=== PATIENT | female | born 1985 | race Caucasian/White ===

== ENCOUNTER 2022-02-09 08:41 | Emergency (ER) | payer BC, SELFPAY ==
[2022-02-09 08:52] VITALS: BP 161/87; PULSE 72; RESP 18; TEMP 36.9; O2SAT 99; BMI 30.7
--- NOTE | 2022-02-09 09:08 | ED_ITS ---
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 She has been sick in bed for a couple of days, her son was sick with the similar illness prior week. She has no shortness of breath, no chest pain, no skin rashes, no nuchal rigidity. She has generally been healthy, she has had a tubal ligation. Related Data Previous Rx's Medication Instructions Recorded ketorolac 10 mg tablet 10 mg PO TID PRN pain 3 days #10 02/09/22 tabs Allergies Allergy/AdvReac Type Severity Reaction Status Date / Time No Known Drug Allergies Allergy Verified 02/09/22 08:52 Review of Systems Status of ROS: Reports: 6 or more systems reviewed and unremarkable except as noted in History and below [facility] Social History Smoking Status: Never smoker Do you use any of these nicotine containing products: None Second hand tobacco smoke exposure: Yes How often do you have a drink containing alcohol: 2-3 times a week How many standard drinks containing alcohol do you have on a typical day: 1 or 2 How often do you have six or more drinks on one occasion: Never AUDIT-C Alcohol total score: 3 Non-prescribed substance use: marijuana (any form) service: No Exam Narrative: Exam Narrative: Objective: In general patient is in mild distress and illness alert or x3, noncyanotic Vital signs unremarkable and slightly hypertensive HEENT is unremarkable dry mucous membranes in the mouth neck is supple chest is clear no rales or wheezing heart rhythm regular no murmur abdomen benign soft extremities are no edema neurologic nonfocal good peripheral perfusion Skin is warm and dry Const: Vital Signs, click to edit/add: Vital Signs - 24 hr 02/09/22 08:52 02/09/22 10:30 02/09/22 09:30 Temperature 98.5 F Pulse Rate [Pulse Oximeter] 72 64 77 Respiratory Rate 18 Blood Pressure [Le ft Forearm] 161/87 H 132/88 133/81 Pulse Oximetry 99 97 99 Oxygen Delivery Me thod Room Air Room Air Course Vital Signs Vital signs: Initial Vital Signs Temperature 98.5 F 02/09/22 08:52 Temperature Source Temporal Artery Scan 02/09/22 08:52 Pulse Rate 72 02/09/22 08:52 Respiratory Rate 18 02/09/22 08:52 Blood Pressure 161/87 H 02/09/22 08:52 Blood Pressure Mean 111 02/09/22 08:52 Blood Pressure Position Supine 02/09/22 08:52 Pulse Oximetry 99 02/09/22 08:52 Oxygen Delivery Method 02/09/22 08:52 Vital Signs Temperature 98.5 F 02/09/22 08:52 Pulse Rate 72 02/09/22 08:52 Respiratory Rate 18 02/09/22 08:52 Blood Pressure 161/87 H 02/09/22 08:52 Pulse Oximetry 99 02/09/22 08:52 Oxygen Delivery Method 02/09/22 08:52 Temperature 98.5 F 02/09/22 08:52 Pulse Rate 64 02/09/22 10:30 Respiratory Rate 18 02/09/22 08:52 Blood Pressure 132/88 02/09/22 10:30 Pulse Oximetry 97 02/09/22 10:30 Oxygen Delivery Method 02/09/22 10:30 Medical Decision Making MDM Narrative Medical decision making narrative: Patient has all the signs and stigmata of an influenza type illness, will check influenza/COVID/RSV. Will treat the patient with IV fluids, IV Toradol, check some laboratory studies and rehydrate. Disposition pending findings would likely send her home with Toradol for discomfort. She can take Tylenol as well. Update her regular doctor in a couple of days, return to ED sooner worsening or changes. Addendum: Patient feels little better if with fluids and Toradol, will send her home with Toradol, she has influenza a Lab Data Labs: Lab Results 02/09/22 02/09/22 02/09/22 Range/Units 09:07 09:20 09:20 WBC 5.17 (4.50-11.00) K/uL RBC 4.56 (4.00-5.20) m/uL Hgb 14.6 (12.0-16.0) gm/dL Hct 42.9 (33.0-51.0) % MCV 94 (80-100) fL MCH 32 (26-34) pg MCHC 34 (32-36) gm/dL RDW Coeff of Rigo 12.2 (11.5-15.5) % Plt Count 207 (140-440) K/uL Neut % (Auto) 75.0 H (42.0-72.0) % Lymph % (Auto) 11.6 L (20-44) % [place] % (Auto) 13.0 H (0.0-11.0) % Eos % (Auto) 0.0 (0.0-7.0) % Baso % (Auto) 0.2 (0.0-3.0) % Neut # (Auto) 3.90 (1.7-7.0) K/uL Lymph # (Auto) 0.60 L (0.90-2.90) K/uL [place] # (Auto) 0.70 (0.00-0.90) K/UL Eos # (Auto) 0.00 (0.00-0.50) K/uL Baso # (Auto) 0.01 (0.00-0.30) K/uL Abs Immat Gran (auto) 0.01 (0.00-0.30) K/uL Imm/Tot Granulo (auto) 0.2 % Sodium 140 (135-149) mmol/L Potassium 3.5 L (3.6-5.1) mmol/L Chloride 107 (96-114) mmol/L Carbon Dioxide 24 (20-32) mmol/L BUN 12 (5-24) mg/dL Creatinine 0.7 (0.5-1.5) mg/dL Estimated Creat Clear 119.77 Estimated GFR 114 ml/min Glucose 79 (60-115) mg/dL Calcium 8.4 (8.4-10.6) mg/dL SARS-CoV-2 (PCR) Negative SARS-CoV-2 (Negative) Influenza Type A (PCR) POSITIVE PCR FLU A A (Negative) Influenza Type B (PCR) Negative PCR FLU B (Negative) RSV (PCR) Negative PCR RSV (Negative) Discharge Plan Discharge Clinical Impression: Acute viral syndrome, Influenza Patient Disposition: Home w/ Parent or Adult Condition: Improved Additional Instructions: Rest, fluids, Toradol as needed, update regular doctor in couple of days, return to ED sooner problems concerns worsening. Activity Level: Light activity Discharge Diet: Regular Diet Detail: Diet as tolerated Prescriptions: New ketorolac 10 mg tablet 10 mg PO TID PRN (Reason: pain) 3 Days Qty: 10 0RF Stand Alone Forms: Exacterth Info Instructions
--- OUTSIDE RECORDS SUMMARY | 2022-02-09 09:15 | XMS_ITS | Clinical Summary ---
:1985 Author Organization [facility] [place] [address] Care Team Providers Name Role Phone Alyce Grady Primary Care Provider Allergies No known active allergies Medications Medication Sig Dispensed Refills Start Date End Date Status busPIRone (BUSPAR) 10 Take 2 Tablets 120 Tablet 5 10/01/2020 Active mg tabletIndications: (20 mg) by mouth Anxiety state 2 times daily. ferrous sulfate, 65 mg TAKE ONE TAB BY 30 Tablet 11 06/03/2021 Active elemental, MOUTH ONCE DAILY tabletIndications: Low ON AN EMPTY ferritin level STOMACH OR WITH SOMETHING ACIDIC. valACYclovir (VALTREX) TAKE ONE TABLET 5 Tablet 4 06/03/2021 Active 1 gram BY MOUTH ONCE tabletIndications: DAILY FOR 5 DAYS Herpes simplex FOR HERPES vulvovaginitis OUTBREAK SUMAtriptan (IMITREX) Take 1 Tablet (50 9 Tablet 3 07/30/2021 Active 50 mg mg) by mouth tabletIndications: every 2 hours if Migraine with aura and needed for without status Migraine. Max migrainosus, not dose: 200mg per intractable 24 hrs. venlafaxine (EFFEXOR TAKE ONE CAPSULE 90 Capsule 1 12/25/2021 Active XR) 75 mg cp24 BY MOUTH ONCE Extended-Release DAILY WITH A capsuleIndications: MEAL. TAKE WITH Major depressive THE 150MG CAP FOR disorder, recurrent TOTAL DAILY DOSE episode, moderate OF 225MG. (HC), Anxiety state venlafaxine (EFFEXOR TAKE ONE CAPSULE 90 Capsule 1 12/25/2021 Active XR) 150 mg BY MOUTH ONCE Extended-Release DAILY WITH capsuleIndications: EVENING MEAL. Major depressive TAKE WITH THE disorder, recurrent 75MG CAP FOR episode, moderate TOTAL DAILY DOSE (HC), Anxiety state 0F 225MG. Active Problems Problem Noted Date Chronic GERD 12/07/2016 Overview: EGD 03/2017 retained food in the stomach Herpes simplex vulvovaginitis 07/12/2016 Cannabis abuse, episodic use 09/14/2015 Anxiety state, unspecified 2011 Low grade squamous intraepithelial lesion (LGSIL) at r isk for high grade 02/20/2010 squamous intraepithelial lesion (HGSIL) on cytologic s mear of cervix Overview: 09/2005 ASCUS 05/2006 UNS 11/2007 NIL 07/2008 LSIL 08/2008 [place] CELINA I 05/2009 LSIL cannot exclude HSIL 02/2010 LSIL cannot exclude HSIL 11/2010 [place] CELINA I 07/2011 NIL 10/2012 NIL 12/2013 ASCUS/HPV+ 04/2014 [place] Suggestive of CELINA I 07/2015 NIL/HPV negative 09/2016 NIL/HPV negative 01/2020 ASCUS/HPV+ 06/2020 [place]: Biopsy CELINA 1 07/2021 LSIL/HPV+, HPV 16/18 negative. 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 02/20/2010 Dysthymic disorder 01/24/2008 01/26/2008 Routine follow-up 05/19/2006 05/19/2006 Depressive disorder, not elsewhere classified 05/19/2006 01/26/2008 Exercise induced bronchospasm 04/13/2006 07/25/2012 Encounters Date Type Specialty Care Team Description 12/23/2021 Refill Alyce Grady PA Refi ll Request (Venlafaxine, Venlafaxine) from Last 3 Months Immunizations Name Administration Dates Next Due AMB INFLUENZA, IIV4 (AGE=>6MOS) MDV 12/12/2017 (Flu Clinic Only) AMB Influenza, IIV3 (Age >=3 11/22/2011 years)(Flu Clinic Only) AMB Influenza, IIV4 PF (=>6 mos 12/05/2016, 12/16/2013 Flulaval,Fluzone Fluarix)(Flu Clinic Only) COVID-19 vaccine (Moderna 05/04/2020, 04/06/2020 100mcg/0.5mL) PF, MDV Human Papilloma Virus Vaccine 04/11/2011, 11/01/2010, 200803/17/2009 Influenza, IIV3 (Age >=3 years) 01/07/2013, 11/01/2010, 11/04, 01/21/2008, 12/26/2003, 12/30/2002 Influenza, IIV4 11/29/2018, 12/08/2015 Influenza, IIV4 (=>6mos) MDV 01/02/2020 Tdap 01/22/2020, 03/08/2010 Tuberculin (PPD) 11/20/2006 Family History Medical History Relation Name Comments Good Health Father Other Maternal Grandmother dementia Psychiatric illness Maternal Uncle bipolar Good Health Mother Relation Name Status Comments Father Maternal Grandmother Maternal Uncle Mother Alive Social History Tobacco Use Types Packs/Day Years Used Date Never Smoker Smokeless Tobacco: Never Used Tobacco Cessation: Counseling Given: Yes Alcohol Use Standard Drinks/Week Comments No 0 (1 standard drink = 0.6 oz pure alcoho l) Sex Assigned at Date Recorded Not on file Obstetrics History Para Term AB IAB SAB Ectopic Multiple Living Live Births 5 5 4 1 0 0 0 0 5 5 Date Outcome GA Total Labor/2nd/3rd Weight Sex Delivery Anes PTL Maria Esther A 1 A5 Name Clin Labor 03/30 Term 38w 15h 00m/ 3.46 kg M Vag-Vacuu Brittni Taj McI 0d (7 lb m ng yre 10 oz) Delivery Location: [facility] 02/28/2004 Term 38w0d 5h 00m/ 3.2 kg (7 M Vag Living Seveth lb 1 oz) 03/01/2006 Term 37w0d 3.03 kg (6 F Vag IV Meds Living 8 9 Laya Gloriayre lb 11 oz) Delivery Location: [facility] 05/25/2008 35w2d 3.49 kg M Vag Intrathecal Livin g 5 6 Alonzo Monson (7 lb 11 oz) Delivery Location: [facility] 12/20/2009 Term 37w0d 3.54 kg (7 lb 13 oz) M Vag Li ving 7 9 [place] Monson Delivery Location: [facility] Last Filed Vital Signs Vital Sign Reading Time Taken Comments Blood Pressure 118/76 09/01/2021 10:16 AM CDT Pulse 65 09/01/2021 10:16 AM CDT Temperature 36.7 ??C (98.1 ??F) 11/09/2017 1:36 PM CDT Respiratory Rate 18 02/17/2011 5:40 PM [employer] Oxygen Saturation 99% 09/01/2021 10:16 AM CDT Inhaled Oxygen Concentration - - Weight 71.6 kg (157 lb 12.8 oz) 09/01/2021 10:16 AM CDT Height 149.9 cm (4' 11) 07/30/2021 7:32 AM CDT Body Mass Index 31.87 07/30/2021 7:32 AM CDT Plan of Treatment Health Maintenance Due Date Last Done Comments COVID-19 vaccine series (3 - 06/29/2020 05/04/2020, 021 Booster for Moderna series) Influenza for age 9-49 11/04/2021 01/02/2020, 11/29/2018, 12/12/2017, Additional history exists Depression screening for age 12+ 06/03/2022 06/03/2021, , 01/22/2020, Additional history exists BMI (ht and wt on same day) for 07/30/2022 07/30/2021, 05/06, age 18+ 10/01/2020, Additional history exists Pap test for age 21-65 07/30/2022 07/30/2021, 07/30/2021, 01/22/2020, Additional history exists Tetanus booster 01/21/2030 01/22/2020, 03/08/2010 Hepatitis C screening for age Completed 06/01/2016, 2015, 18-79 07/25/2011 Tdap Completed 01/22/2020, 03/08/2010 HIV for age 15-65 Completed 06/17/2020, 06/01/2016, 02/17/2016, Additional history exists Results Not on filefrom Last 3 Months Insurance Payer Benefit Plan / Subscriber ID Effective Dates Phone Addre ss Type Group [employer] [place] [employer] [id number] 2018-Present [address] [address] [place] [address] [phone] [facility] [address] (Home) [place] [id number] [address] Occ [birth year][address] [phone] [facility] [employer] 1 (Home) [place] [id number] Advance Directives Latest Code Status on File Code Status Date Activated Date Inactivated Comments Full Code 04/06/2011 8:11 PM 04/08/2011 5:32 PM Full Code 11/30/2009 2:02 AM 11/30/2009 5:16 PM Care Teams Equipment Service Engineer Relationship Specialty Start Date End Date Alyce Grady PA PCP - General Family Practice 10/04/[address] [place] [address]
[2022-02-09] MEDS: 0.9 % SODIUM CHLORIDE 1000 ml 1,000 ML 6000 ML IV (09:20)
[2022-02-09] MEDS: KETOROLAC 30 MG/ML inj IVP (09:20)
[2022-02-09 09:30] VITALS: BP 133/81; PULSE 77; O2SAT 99
[2022-02-09 09:38] LABS: Basophils Absolute Auto 0.01 K/uL (0.00-0.30); Basophils Percent Auto 0.2 % (0.0-3.0); Hematocrit 42.9 % (33.0-51.0); Hemoglobin* 14.6 gm/dL (12.0-16.0); Immature Granulocytes Abs Auto 0.01 K/uL (0.00-0.30); Immature Granulocytes Pct Auto 0.2 %; Lymphocytes Percent Auto 11.6 % (20-44); Mean Corpuscular HGB Conc 34 gm/dL (32-36); Mean Corpuscular Hemoglobin 32 pg (26-34); Mean Corpuscular Volume 94 fL (80-100); Platelet Count* 207 K/uL (140-440); RDW Coefficient of Variation % 12.2 % (11.5-15.5); Red Blood Count 4.56 m/uL (4.00-5.20); White Blood Count* 5.17 K/uL (4.50-11.00)
[2022-02-09 09:45] LABS: Slide Review Reflex No
[2022-02-09 09:51] LABS: Chloride* 107 mmol/L (96-114); Potassium* 3.5 mmol/L (3.6-5.1); Sodium* 140 mmol/L (135-149)
[2022-02-09 09:54] LABS: Blood Urea Nitrogen* 12 mg/dL (5-24); Carbon Dioxide* 24 mmol/L (20-32); Creatinine* 0.7 mg/dL (0.5-1.5); Est. Creatinine Clearance* 119.77; Estimated Glomerular Filt Rate 114 ml/min; Glucose* 79 mg/dL (60-115)
[2022-02-09 09:55] LABS: Calcium* 8.4 mg/dL (8.4-10.6)
[2022-02-09 09:56] LABS: PCR FLU A POSITIVE PCR FLU A (Negative); PCR FLU B Negative PCR FLU B (Negative); PCR RSV Negative PCR RSV (Negative)
[2022-02-09 10:29] LABS: SARS PCR* Negative SARS-CoV-2 (Negative)
[2022-02-09 10:30] VITALS: BP 132/88; PULSE 64; O2SAT 97
== END 2022-02-09 11:04 | disposition home or self-care (01) ==
LOC: ED 09:13
PROVIDERS: Emergency Provider Family Medicine; PCP Physician Assistant
DX: J11.1 Influenza due to unidentified influenza virus with other respiratory manifestations (principal); B34.9 Viral infection, unspecified
CPT/HCPCS: 36415; 80048; 85025; 87502; 87634; 87635; 96361; 96374; 99284; J1885; J7030

== ENCOUNTER 2023-11-17 14:18 | Outpatient (CLI) | payer BC, SELFPAY ==
--- OUTSIDE RECORDS SUMMARY | 2023-11-17 14:21 | XMS_ITS | Clinical Summary ---
Author Organization [facility] Address [place], [place] [address] Care Team Providers Care Director Of Respiratory Therapy Name Role Phone Unavailable Primary Care Provider Unavailabl e Allergies No known active allergies Medications Medication Sig Dispensed Refills Start Date End Date Status SUMAtriptan (IMITREX) 50 mg tabletIndications:[place] with aura and without status migrainosus, not intractable Take 1 Tablet (50 mg) by mouth every 2 hours if needed for Migraine. Max dose: 200mg per 24 hrs. 9 Tablet 3 07/30/2021 Active valACYclovir (VALTREX) 1 gram tabletIndications:Her pes simplex vulvovaginitis TAKE ONE TABLET BY MOUTH ONCE DAILY FOR 5 DAYS FOR HERPES OUTBREAK 5 Tablet 2 01/13/2023 Active venlafaxine (EFFEXOR XR) 75 mg cp24 Extended-Release capsuleIndications:Ma jose m depressive disorder, recurrent episode, moderate (HC),Anxiety state TAKE ONE CAPSULE (75 MG) DAILY WITH ONE 150 MG CAPSULE DAILY FOR A TOTAL OF 225 MG DAILY. 90 Capsule 08/10/2023 Active venlafaxine (EFFEXOR XR) 150 mg Extended-Release capsuleIndications:Ma jose m depressive disorder, recurrent episode, moderate (HC),Anxiety state TAKE ONE 150 MG CAPSULE WITH ONE 75 MG CAPSULE FOR A TOTAL OF 225 MG BY MOUTH DAILY. 90 Capsule 08/10/2023 Active busPIRone (BUSPAR) 10 mg tabletIndications:Anx iety state TAKE 2 TABLETS (20 MG) BY MOUTH TWO TIMES DAILY. 360 Tablet 08/10/2023 Active ferrous sulfate, 65 mg elemental, (FeroSuL) tabletIndications:Low ferritin level TAKE ONE TAB BY MOUTH ONCE DAILY ON AN EMPTY STOMACH OR WITH SOMETHING ACIDIC. 90 Tablet 08/10/2023 Active Active Problems Problem Noted Date Diagnosed Date Chronic GERD 12/07/2016 Overview (03/22/2017): EGD 03/2017 retained food in the stomach Herpes simplex vulvovaginitis 07/12/2016 Cannabis abuse, episodic use 09/14/2015 Anxiety state, unspecified 2011 Low grade squamous intraepit helial lesion (LGSIL) at risk for high grade squamous intraepithelial lesion (HGSIL) on cytologic smear of cervix 02/20/2010 Overview (09/10/2021): 09/2005 ASCUS 05/2006 UNS 11/2007 NIL 07/2008 LSIL 08/2008 [place] CELINA I 05/2009 LSIL cannot exclude HSIL 02/2010 LSIL cannot exclude HSIL 11/2010 [place] CELINA I 07/2011 NIL 10/2012 NIL 12/2013 ASCUS/HPV+ 04/2014 [place] Suggestive of CELINA I 07/2015 NIL/HPV negative 09/2016 NIL/HPV negative 01/2020 ASCUS/HPV+ 06/2020 [place]: Biopsy CELINA 1 07/2021 LSIL/HPV+, HPV 16/18 negative. Provider Plan: Pap/HPV due 07/2022 Major depressive disorder, recurrent episode, mo derate 01/26/2008 Resolved Problems Problem Noted Date Diagnosed Date Resolved Date Depressive disorder, not elsewhere classified 04/07/19 12 07/15/2015 Adjustment disorder with depressed mood 04/07/2011 07/15/2015 Desires Permanent Sterilization 12/07/2009 08/17/2017 Threatened premature labor, unspecified as to episode of care 11/30/2009 02/20/2010 Desires Permanent Sterilization 11/30/2009 02/19/2010 Dysthymic disorder 02/07/2008 0 Dysthymic disorder 01/24/2008 8 Routine follow-up 05/19/2006 05/19/2006 Depressive disorder, not elsewhere classified 05/20/19 07 01/26/2008 Exercise induced bronchospasm 04/13/2006 07/25/2012 Encounters Date Type Department Care Team Description 11/13/[address] [facility] [address] [place] [address] Rae Dalal PA Refill Request (Ferosul, Venlafaxine, Buspirone, Venlafaxine) from Last 3 Months Immunizations Name Administration Dates Next Due AMB INFLUENZA, IIV4 (AGE=>6M OS) MDV (Flu Clinic Only) 12/12/2017 AMB Influenza, IIV3 (Age >=3 years)(Flu Clinic Only) 11/22/2011 AMB Influenza, IIV4 PF (=>6 mos Flulaval,Fluzone Fluarix)(Flu Clinic Only) 12/05/2016,12/16/2013 COVID-19 vaccine (Moderna 100mcg/0.5mL) PF, MDV 05/04/2020,04/06/2020 Human Papilloma Virus Vaccine 04/11/2011, 011,01/15/2009 03/17/2009 Influenza, IIV3 (Age >=3 years) 01/08/20 13,11/01/2010,11/20/2009,2007,12/26/2003,12/30/2002 Influenza, IIV4 11/29/2018,12/08/2015 Influenza, IIV4 (=>6mos) MDV 01/02/2020 Tdap 01/22/2020,03/08/2010 Tuberculin (PPD) 11/20/2006 Family History Medical History Relation Name Comments Good Health Father Other Maternal Grandmother dementi a Psychiatric illness Maternal Uncle bipola r Good Health Mother Relation Name Status Comments Father Maternal Grandmother Maternal Uncle Mother Alive Social History Tobacco Use Types Packs/Day Years Used Date Smoking Tobacco: Never Smokeless Tobacco: Never Tobacco Cessation:Counseling Given: Yes Alcohol Use Standard Drinks/Week Comments No 0 (1 standard drink = 0.6 oz pur e alcohol) PHQ-2 Answer Date Recorded PHQ-2 TOTAL SCORE 0 07/27/2022 Social Connections Answer Date Recorded Frequency of Communication with Friends and Fami ly Not on file 08/02/2022 Financial Resource Strain Answer Date R ecorded Difficulty of Paying Living Expenses 3 07/30/2021 Difficulty of Paying Living Expenses Not on file 07/30/2021 Food Insecurity Answer Date Recorded Worried About Running Out of Food in the Last Ye ar 1 07/30/2021 Transportation Needs Answer Date Record ed Lack of Transportation (Medical) 1 07/30/2021 Housing Stability Answer Date Recorded Unable to Pay for Housing in the Last Year 1 07/30/2021 Sex and Gender Information Value Date Recorded Sex Assigned at Not on file Gender Identity Not on file Sexual Orientation Not on file Obstetrics History Para Term AB IAB SAB Ectopic Multiple Livin g Live Births 5 5 4 1 0 0 0 0 5 5 Date Outcome GA Total Labor Labor/2nd/3rd Weight Sex Type Anes PTL Maria Esther A1 A5 Name Clin 2003 Term 38w 0d 15h 00m/ 3.46 kg (7 lb 10 oz) M Vag-V acuum Livin g Taj McInt yre Delivery Location:[facility] 2003 Term 38w 0d 5h 00m/ 3.2 kg (7 lb 1 oz) M Vag Livin g Seveth 2005 Term 37w 0d 3.03 kg (6 lb 11 oz) F Vag IV Meds Livin g 8 9 Laya McInt yre Delivery Location:[facility] 2008 35w 2d 3.49 kg (7 lb 11 oz) M Vag Intrat hecal Livin g 5 6 Alonzo McInt yre Delivery Location:[facility] 2009 Term 37w 0d 3.54 kg (7 lb 13 oz) M Vag Livin g 7 9 Braxto n McInt yre Delivery Location:[facility] Last Filed Vital Signs Vital Sign Reading Time Taken Comments Blood Pressure 122/80 07/27/2022 7:03 AM CDT Pulse 61 07/27/2022 7:03 AM CDT Temperature 36.7 ??C (98.1 ??F) 11/09/2017 1:36 PM CD T Respiratory Rate 18 02/17/2011 5:40 PM [employer] Oxygen Saturation 100% 07/27/2022 7:03 AM CDT Inhaled Oxygen Concentration - - Weight 69.2 kg (152 lb 9.6 oz) 07/27/2022 7:03 A M CDT Height 149.9 cm (4' 11) 07/30/2021 7:32 AM CDT Body Mass Index 30.82 07/30/2021 7:32 AM CDT Plan of Treatment Health Maintenance Due Date Last Done Comments BMI (ht and wt on same day) for age 18+ 07/30/2022 07/30/2021, 06/03/2021, 10/01/2020, Additional history exists Pap test for age 21-65 07/30/2022 , 07/30/2021, 01/22/2020, Additional history exists Depression screening for age 12+ 07/28/2023 07/27/2022, 06/03/2021, 10/01/2020, Additional history exists COVID-19 vaccine series ( season) 2023 05/04/2020, 04/06/2020 Influenza for age 9-49 11/05/2023 , 11/29/2018, 12/12/2017, Additional history exists Tetanus booster 01/21/2030 01/22/2020, 03/08/2010 Hepatitis C screening for age 18-79 Completed 06/01/2016, 02/17/2016, 07/25/2011 Tdap Completed 01/22/2020, 03/08/2010 HIV for age 15-65 Completed 06/17/2020, , 02/17/2016, Additional history exists Pneumococcal series for age 6-64 Aged Out No longer eligible based on patient's age to complete this topic Procedures Procedure Name Priority Date/Time Associated Diagnosis Comments HPV THIN PREP Routine 07/30/2021 7:49 AM CDT ASCUS with positive high risk HPV cervical ANTI HIV 1/2 Routine 06/17/2020 4:26 PM CDT Screen for STD (sexually transmitted disease) ANTI HCV Routine 06/01/2016 3:02 PM CDT Screen for STD (sexually transmitted disease) from Last 3 Months or Most Recently Relevant to Health Maintenance Results * (ABNORMAL) HPV HIGH RISK (07/30/2021 7:49 AM CDT) TYPE 16 Negative Negative 08/03/2021 5:40 PM CDT [facility] TYPE 18 Negative Negative 08/03/2021 5:40 PM CDT [facility] OTHER HIGH RISK TYPES Positive(A) Negative 08/03/2021 5:40 PM CDT [facility] Other (Cervical) Non-Blood / Unknown 07/30/2021 7:49 AM CDT 07/30/2021 4:44 PM CDT Narrative [facility] - 08/03/2021 5:40 PM CDT Specimen is positive for the DNA of any one of, or combination of, the following high risk HPV types: 31, 33, 35, 39, 45, 51, 52, 56, 58, 59, 66, 68. HPV types 16 and 18 DNA were undetectable or below the pre-set threshold. ? Methodology: Tereza Socrates 4800 HPV Test Alyce BUCKLEY MICROBIOLOGY Performing Organization Address City/[facility]/ZIP Co de Phone Number [facility] [address] [place] [address], * ANTI HIV 1/2 (06/17/2020 4:26 PM CDT) HIV-1/HIV-2 ANTIBODY Non-Reacti ve Non-Reacti ve 06/18/2020 2:58 PM CDT [facility] Comment:HIV-1 p24 and HIV-1/ HIV-2 Ab not detected. Blood BLOOD SPECIMEN / Unknown Venipuncture / Unknown 06/17/2020 4:26 PM CDT 06/17/2020 4:26 PM CDT Nita Orona MD SEND OUTS [facility] [address] [place] [address], * ANTI HCV (06/01/2016 3:02 PM CDT) HEPATITIS C ANTIBODY Non-Reacti ve Non-Reacti ve 06/01/2016 8:49 PM CDT [facility] Blood BLOOD SPECIMEN / Unknown Venipuncture / Unknown 06/01/2016 3:02 PM CDT 06/01/2016 3:02 PM CDT Narrative [facility] - 06/01/2016 8:49 PM CDT Antibodies to HCV not detected; does not exclude the possibility of exposure to HCV. Alyce BUCKLEY SEND OUTS [facility] [address] [place] [address], from Last 3 Months or Most Recently Relevant to Health Maintenance Advance Directives * Full Code (Latest Code Status on File) Date Activated Date Inactivated Comments 04/06/2011 8:11 PM 04/08/2011 5:32 PM * Full Code Date Activated Date Inactivated Comments 11/30/2009 2:02 AM 11/30/2009 5:16 PM
[2023-11-17 23:05] LABS: Chlamydia DNA Amplified* NOT DETECTED (No Detected); GC DNA Amplified* NOT DETECTED (No Detected)
== END 2023-11-17 14:19 | disposition home or self-care (01) ==
LOC: NFLDUCREF 14:19
PROVIDERS: PCP Student in an Organized Health Care Education/Training Program; Visit Provider Physician Assistant
DX: Z11.3 Encounter for screening for infections with a predominantly sexual mode of transmission (principal)
CPT/HCPCS: 87491; 87591

== ENCOUNTER 2024-01-29 13:27 | Outpatient (CLI) | payer BC, SELFPAY ==
--- OUTSIDE RECORDS SUMMARY | 2024-01-29 13:30 | XMS_ITS | Clinical Summary ---
Author Organization [facility] Address [place], [place] [address] Care Team Providers Care Gift Wrapper Name Role Phone Pcp, No Primary Care Provider Unavailabl e Allergies No known active allergies Medications Medication Sig Dispensed Refills Start Date End Date Status venlafaxine (EFFEXOR XR) 150 mg Extended-Release capsuleIndications:G AD (generalized anxiety disorder),Major depressive disorder, recurrent episode, moderate (HC) Take one 150 mg capsule with one 75 mg capsule for a total of 225 mg by mouth daily. 90 Capsule 3 12/05/2023 Active venlafaxine (EFFEXOR XR) 75 mg cp24 Extended-Release capsuleIndications:G AD (generalized anxiety disorder),Major depressive disorder, recurrent episode, moderate (HC) TAKE ONE CAPSULE (75 MG) BY MOUTH DAILY WITH ONE 150 MG CAPSULE DAILY FOR A TOTAL OF 225 MG DAILY. 90 Capsule 3 12/05/2023 Active valACYclovir (VALTREX) 1 gram tabletIndications:He rpes simplex vulvovaginitis TAKE ONE TABLET BY MOUTH ONCE DAILY FOR 5 DAYS FOR HERPES OUTBREAK 5 Tablet 3 12/05/2023 Active ferrous sulfate, 65 mg elemental, (FeroSuL) tabletIndications:Lo w ferritin level TAKE ONE TABLET BY MOUTH ONCE DAILY ON AN EMPTY STOMACH OR WITH SOMETHING ACIDIC. 90 Tablet 3 12/05/2023 Active ARIPiprazole (Abilify) 5 mg tabletIndications:Ma jose m depressive disorder, recurrent episode, moderate (HC),KWAN (generalized anxiety disorder) Take 1 Tablet (5 mg) by mouth once daily. 90 Tablet 3 01/05/2024 Active busPIRone (BUSPAR) 10 mg tabletIndications:GA D (generalized anxiety disorder) Take 2 Tablets (20 mg) by mouth two times daily. 360 Tablet 3 01/05/2024 Active busPIRone (BUSPAR) 10 mg tabletIndications:GA D (generalized anxiety disorder) Take 2 Tablets (20 mg) by mouth two times daily. 120 Tablet 11 12/05/2023 4 Discontinue d(Reorder (E-cancel not sent)) ARIPiprazole (Abilify) 5 mg tabletIndications:Jr salguero depressive disorder, recurrent episode, moderate (HC),KWAN (generalized anxiety disorder) Take 1 Tablet (5 mg) by mouth once daily. 30 Tablet 1 12/06/2023 4 Discontinue d(Reorder (E-cancel not sent)) Active Problems Problem Noted Date Diagnosed Date HGSIL (high grade squamous i ntraepithelial lesion) on Pap smear of cervix 01/05/2024 Overview (01/15/2024): 09/2005 ASCUS 05/2006 UNS 11/2007 NIL 07/2008 LSIL 08/2008 [place] CELINA I 05/2009 LSIL cannot exclude HSIL 02/2010 LSIL cannot exclude HSIL 11/2010 [place] CELINA I 07/2011 NIL 10/2012 NIL 12/2013 ASCUS/HPV+ 04/2014 [place] Suggestive of CELINA I 07/2015 NIL/HPV negative 09/2016 NIL/HPV negative 01/2020 ASCUS/HPV+ 06/2020 [place]: Biopsy CELINA 1 07/2021 LSIL/HPV+, HPV 16/18 negative 01/2024 HSIL/HPV+, 16/18 negative Plan: Chronic GERD 12/07/2016 Overview (03/22/2017): EGD 03/2017 retained food in the stomach Herpes simplex vulvovaginitis 07/12/2016 Cannabis abuse, episodic use 09/14/2015 Anxiety state, unspecified 2011 Major depressive disorder, recurrent episode, mo derate [...] Encounters Date Type Department Care Team Description 01/17/2024 Telephone [facility] [address] [place] [address] Dalila Wylie PA Results (ABNORMAL PAP RESULT) 01/15/2024 Orders Only [facility] [address] [place] [address] Dalila Wylie PA <No scans attached> 01/11/2024 3:15 PM CELLULOSE INSULATION HELPER Ancillary Procedure [facility] [address] [place] [address] 01/11/2024 Telephone [facility] [address] [place] [address] Dalila Wylie PA Pap Plan 01/10/2024 Travel 01/05/2024 8:30 AM CDT Office Visit [facility] [address] [place] [address] Dalila Wylie PA Medication Management (Was started on a new med and needs follow up-also has only had 3 periods this year) 01/05/2024 Travel 01/03/2024 Travel 12/06/2023 Telephone [facility] [address] [place] [address] Rae Dalal PA Appointment 12/05/2023 9:30 AM CDT Office Visit [facility] [address] [place] [address] Rae Dalal PA Medication Management 12/05/2023 E-Consult [facility] [address] [place] [address] Elías Miller DO 12/05/2023 Travel 11/13/2023 Refill [facility] [address] [place] [address] Rae Dalal PA Refill Request (Ferosul, Venlafaxine, [...] PHQ-2 Answer Date Recorded PHQ-2 TOTAL SCORE 1 01/05/2024 Social Connections Answer Date Recorded Do you often feel lonely or isolated from those around you? 0 12/05/2023 Financial Resource Strain Answer Date R ecorded Difficulty of Paying Living Expenses 3 12/05/2023 Difficulty of Paying Living Expenses Not on file 12/05/2023 Food Insecurity Answer Date Recorded Do you worry your food will run out before you are able to buy more? 1 12/05/2023 Transportation Needs Answer Date Record ed Does lack of transportation keep you from medica l appointments? 1 12/05/2023 Does lack of transportation keep you from work, meetings or getting things that you need? 1 12/05/2023 Housing Stability Answer Date Recorded What is your housing situation today? 3 12/05/2023 Sex and Gender Information Value Date Recorded [...] oz) M Vag-V acuum Livin g Taj [facility] Delivery Location:[facility] 2003 Term 38w 0d 5h 00m/ 3.2 kg (7 lb 1 oz) M Vag Livin g Seveth 2005 Term 37w 0d 3.03 kg (6 lb 11 oz) F Vag IV Meds Livin g 8 9 Laya [facility] Delivery Location:[facility] 2008 35w 2d 3.49 kg (7 lb 11 oz) M Vag Intrat hecal Livin g 5 6 Alonzo [facility] Delivery Location:[facility] 2009 Term 37w 0d 3.54 kg (7 lb 13 oz) M Vag Livin g 7 9 Braxto n [facility] Delivery Location:[facility] Last Filed Vital Signs Vital Sign Reading Time Taken Comments Blood Pressure 144/86 01/05/2024 8:29 AM CDT Pulse 65 01/05/2024 8:29 AM CDT Temperature 36.7 C (98.1 F) 11/09/2017 1:36 PM CDT Respiratory Rate 18 02/17/2011 5:40 PM CELLULOSE INSULATION HELPER Oxygen Saturation 100% 01/05/2024 8:29 AM CDT Inhaled Oxygen Concentration - - Weight 67.6 kg (149 lb) 01/05/2024 8:29 AM CDT Height 149.9 cm (4' 11) 07/30/2021 7:32 AM CDT Body Mass Index 30.09 07/30/2021 7:32 AM CDT Plan of Treatment Health Maintenance Due Date Last Done Comments BMI (ht and wt on same day) for age 18+ 07/30/2022 07/30/2021, 06/03/2021, 10/01/2020, Additional history exists COVID-19 vaccine series (2023- season) 2023 05/04/2020, 04/06/2020 Influenza for age 9-49 11/05/2023 0, 11/29/2018, 12/12/2017, Additional history exists Depression screening for age 12+ 01/04/2025 01/05/2024, 12/06/2023, 12/05/2023, Additional history exists Pap test for age 21-65 01/04/2027 4, 07/30/2021, 07/30/2021, Additional history exists Tetanus booster 01/21/2030 01/22/2020, 03/08/2010 Hepatitis C screening for age 18-79 Completed 06/01/2016, 02/17/2016, 07/25/2011 Tdap Completed 01/22/2020, 03/08/2010 HIV for age 15-65 Completed 06/17/2020, , 02/17/2016, Additional history exists Pneumococcal series for age 6-64 Aged Out No longer eligible based on patient's age to complete this topic Procedures Procedure Name Priority Date/Time Associated Diagnosis Comments US PELVIS COMPLETE TA AND TV Routine 01/11/2024 3:49 PM CELLULOSE INSULATION HELPER Irregular periods PAP HUB ONLY-HPV GENOTYPES 16 AND 18, CERVICAL ([facility]) Add On 01/05/2024 12:33 PM CDT Low grade squamous intraepithelial lesion (LGSIL) at risk for high grade squamous intraepithelial lesion (HGSIL) on cytologic smear of cervix URINE POCT Routine 01/05/2024 9:12 AM CDT Irregular periods BREAD STACKER THIN PREP PAP AND HPV DNA - AGE 25 AND OVER ([facility]) Routine 01/05/2024 9:10 AM CDT Screening for malignant neoplasm of cervix PROLACTIN ([facility]) Routine 01/05/2024 9:0 7 AM CDT Irregular periods TSH Routine 01/05/2024 9:07 AM CDT Irregular periods CBC WITH AUTO DIFFERENTIAL Routine 01/05/2024 9:07 AM CDT Irregular periods GLUCOSE, RANDOM Routine 12/05/2023 10:20 AM CDT Diabetes mellitus screening LIPID PANEL W REFLEX MEASURED LDL Routine 12/05/2023 10:20 AM CDT Lipid screening HEMOGLOBIN Routine 12/05/2023 10:20 AM CDT Low ferritin level FERRITIN Routine 12/05/2023 10:20 AM CDT Low ferritin level ANTI HIV 1/2 Routine 06/17/2020 4:26 PM CDT Screen for STD (sexually transmitted disease) ANTI HCV Routine 06/01/2016 3:02 PM CDT Screen for STD (sexually transmitted disease) from Last 3 Months or Most Recently Relevant to Health Maintenance Results * US PELVIS COMPLETE TA AND TV (01/11/2024 3:49 PM CELLULOSE INSULATION HELPER) Anatomical Region Laterality Modality Pelvis Ultrasound 01/12/2024 9:20 AM CELLULOSE INSULATION HELPER Impressions 01/12/2024 9:20 AM CELLULOSE INSULATION HELPER Heterogeneously thickened endometrium measuring 13 millimeters. Incidental simple right ovarian cyst measuring 2 cm. Dictated by William Pugh MD @ 01/12/2024 9:20:50 AM (Electronically Signed) Narrative 01/12/2024 9:20 AM CELLULOSE INSULATION HELPER For Patients: As a result of the Cures Act, medical imaging exams and procedure reports are released immediately into your electronic medical record. You may view this report before your referring provider. If you have questions, please contact your health care provider. INDICATION: Irregular periods COMPARISON: none TECHNIQUE: 2D pool scale and color Doppler images were acquired of the pelvis using a transabdominal and transvaginal approach. FINDINGS: Sonographic images demonstrate a normal size and smooth outer contour of the uterus. Uterus measures 8.3 cm in length by 4.4 cm in AP diameter by 4.8 cm in transverse dimension. The myometrium has a normal uniform echotexture. The endometrial lining appears heterogeneous and measures 13 mm in composite thickness. The right ovary measures 3.0 x 2.1 x 1.3 cm in size and the left ovary measures 3.1 x 1.2 x 1.1 cm. The ovaries demonstrate normal arterial and venous blood flow on color Doppler analysis. There are no suspicious fluid collections within the cul-de-sac. Simple cyst right ovary measures 2.0 x 1.9 x 1.2 cm. Procedure Note William Pugh MD - 01/12/2024 For Patients: As a result of the Century Cures Act, medical imagingexams and procedure reports are released immediately into your electronicmedical record. You may view this report before your referring provider.If you have questions, please contact your health care provider. INDICATION: Irregular periods COMPARISON: none TECHNIQUE: 2D pool scale and color Doppler images were acquired of the pelvis using atransabdominal and transvaginal approach. FINDINGS: Sonographic images demonstrate a normal size and smooth outer contour ofthe uterus. Uterus measures 8.3 cm in length by 4.4 cm in AP diameter by4.8 cm in transverse dimension. The myometrium has a normal uniformechotexture. The endometrial lining appears heterogeneous and measures 13mm in composite thickness. The right ovary measures 3.0 x 2.1 x 1.3 cm in size and the left ovarymeasures 3.1 x 1.2 x 1.1 cm. The ovaries demonstrate normal arterial andvenous blood flow on color Doppler analysis. There are no suspicious fluidcollections within the cul-de-sac. Simple cyst right ovary measures 2.0 x1.9 x 1.2 cm. IMPRESSION: Heterogeneously thickened endometrium measuring 13 millimeters. Incidental simple right ovarian cyst measuring 2 cm. Dictated by William Pugh MD @ 01/12/2024 9:20:50 AM (Electronically Signed) Dalila BUCKLEY * HPV GENOTYPES 16 AND 18, CERVICAL ([facility]) (01/05/2024 12:33 PM CDT) Pathologist [facility] HPV 16 Not Detected Not Detected [facility] HPV 18 Not Detected Not Detected [facility] Comment:Methodology: Real Ti me PCR Other SPECIMEN FROM UTERINE CERVIX / Unknown 01/05/2024 12:33 PM CDT 01/12/2024 1:26 AM CELLULOSE INSULATION HELPER Dalila BUCKLEY SEND OUTS [facility] [address] [place] [address], [facility] [address] [place] [address] * URINE POCT (01/05/2024 9:12 AM CDT) [facility] [address] [facility] POC HCG URINE NEGATIVE NEGATIVE [facility] Urine URINE SPECIMEN / Unknown 01/05/2024 9:12 AM CDT 01/05/2024 9:12 AM CDT Dalila BUCKLEY URINE [facility] [address] [place] [address], [facility] [address] [place] [address] * (ABNORMAL) BREAD STACKER THIN PREP PAP AND HPV DNA - AGE 25 AND OVER ([facility]) (01/05/2024 9:10 AM CDT) Pathologist [facility] CLINICAL INFORMATION [facility] Comment:None given LMP [facility] Comment:12/11/23 PREV. PAP [facility] Comment:07/30/21 PREV. BX [facility] Comment:YES SOURCE BREAD STACKER [facility] Comment:Cervix STATEMENT OF ADEQUACY [facility] Comment: Satisfactory for evaluation. Endocervical/transformation zone component present. GENERAL CATEGORIZATION (A) [facility] Comment:Cytology Results: Ep ithelial Cell Abnormality INTERPRETATION/RESUL T (A) [facility] Comment:High Grade Squamous Intraepithelial Lesion (HSIL) COMMENT [facility] Comment: This Pap test has been evaluated with computer assisted technology. To assist in maintaining the highest degree of accuracy and correlation between cytologic and histologic findings, please forward follow-up data for subsequent biopsies performed by any other non-[facility] laboratory. Suggest clinical correlation and follow-up as clinically appropriate PROCESS CONTROL PROGRAMMER [facility] Comment: AVN, CT(ASCP) CT Screening location: [address] [address] PATHOLOGIST [facility] Comment: Elías Davila M.D., Board Certified in Anatomic and Clinical Pathology (electronic signature) THINPREP TIS PAP ALWAYS MESSAGE [facility] Comment: EXPLANATORY NOTE: The Pap is a screening test for cervical cancer. It is not a diagnostic test and is subject to false negative and false positive results. It is most reliable when a satisfactory sample, regularly obtained, is submitted with relevant clinical findings and history, and when the Pap result is evaluated along with historic and current clinical information. HPV HIGH RISK Detected (A) NOT DETECTED [facility] Comment: Detected One or more High Risk HPV types (16,18,31,33, 35,39,45,51,52,56,58,59,66,68) was detected. Methodology: Real Time PCR Other (Other) 01/05/2024 9:1 0 AM CDT 01/06/2024 6:[address] [facility] - 01/11/2024 10:47 AM CELLULOSE INSULATION HELPER SPLIT 01/05/2024 FROM [id number] Dalila BUCKLEY PATHOLOGY/CYTOLOGY [address] [address], [facility] [address] * PROLACTIN ([facility]) (01/05/2024 9:07 AM CDT) [facility] [address] PROLACTIN 7.8 ng/mL [facility] Comment: Reference Range Females Non- 3.0-30.0 10.0-209.0 Postmenopausal 2.0-20.0 Blood BLOOD SPECIMEN / Unknown 01/05/2024 9:07 AM CDT 01/05/2024 9:08 AM CDT Narrative [facility] - 01/06/2024 5:30 AM CDT SPECIMEN COLLECTED AT PROVIDER OFFICE. Dalila BUCKLEY SEND OUTS Performing Organization Address [facility]/ZIP Co de Phone Number [facility] [place] [id number] [place] [address], [facility] [address] [place] [address] * TSH (01/05/2024 9:07 AM CDT) [facility] [address] [facility] TSH 0.85 mIU/L [facility] Comment: Reference Range > or = 20 Years 0.40-4.50 Ranges First trimester 0.26-2.66 Second trimester 0.55-2.73 Third trimester 0.43-2.91 Blood BLOOD SPECIMEN / Unknown 01/05/2024 9:07 AM CDT 01/05/2024 9:08 AM CDT Narrative [facility] - 01/06/2024 5:30 AM CDT SPECIMEN COLLECTED AT PROVIDER OFFICE. Dalila BUCKLEY CHEMISTRY Performing Organization Address City/[facility]/ZIP Co de Phone Number [facility] [address] [place] [address], [facility] [address] [place] [address] * (ABNORMAL) CBC AND DIFFERENTIAL (01/05/2024 9:07 AM CDT) [facility] [address] [facility] WHITE BLOOD CELL COUNT 6.1 3.8 - 10.8 Thousand/u L [facility] RED BLOOD CELL COUNT 4.61 3.80 - 5.10 Million/uL [facility] HEMOGLOBIN 15.2 11.7 - 15.5 g/dL [facility] HEMATOCRIT 45.2(H) 35.0 - 45.0 % [facility] MCV 98.0 80.0 - 100.0 fL [facility] MCH 33.0 27.0 - 33.0 pg [facility] MCHC 33.6 32.0 - 36.0 g/dL [facility] Comment: For adults, a slight decrease in the calculated MCHC value (in the range of 30 to 32 g/dL) is most likely not clinically significant; however, it should be interpreted with caution in correlation with other red cell parameters and the patient's clinical condition. RDW 11.9 11.0 - 15.0 % [facility] PLATELET COUNT 319 140 - 400 Thousand/u L [facility] MPV 10.2 7.5 - 12.5 fL [facility] ABSOLUTE NEUTROPHILS 4,240 1,500 - 7,800 cells/uL [facility] ABSOLUTE LYMPHOCYTES 1,409 850 - 3,900 cells/uL [facility] ABSOLUTE MONOCYTES 403 200 - 950 cells/uL [facility] ABSOLUTE EOSINOPHILS 31 15 - 500 cells/uL [facility] ABSOLUTE BASOPHILS 18 0 - 200 cells/uL [facility] NEUTROPHILS 69.5 % [facility] LYMPHOCYTES 23.1 % [facility] MONOCYTES 6.6 % [facility] EOSINOPHILS 0.5 % [facility] BASOPHILS 0.3 % [facility] Blood BLOOD SPECIMEN / Unknown 01/05/2024 9:07 AM CDT 01/05/2024 9:08 AM CDT Narrative [facility] - 01/06/2024 3:26 AM CDT SPECIMEN COLLECTED AT PROVIDER OFFICE. Dalila BUCKLEY HEMATOLOGY Performing Organization Address [facility]/ZIP Co de Phone Number [facility] [address] [place] [address], [place] [phone] [facility] [address] [place] [address] * LIPID PANEL W REFLEX MEASURED LDL (12/05/2023 10:20 AM CDT) CHOLESTEROL, TOTAL 192 <200 mg/dL [facility] HDL CHOLESTEROL 79 > OR = 50 mg/dL [facility] TRIGLYCERIDES 90 <150 mg/dL [facility] LDL-CHOLESTEROL 95 mg/dL (calc) [facility] Comment: Reference range: <100 Desirable range <100 mg/dL for primary prevention; <70 mg/dL for patients with CHD or diabetic patients with > or = 2 CHD risk factors. LDL-C is now calculated using the Rhett-Yamileth calculation, which is a validated novel method providing better accuracy than the Friedewald equation in the estimation of LDL-C. Rhett SS et al. DREW. 2013;310(19): 3825-3121 (http://education.1o1Media/faq/MKZ178) CHOL/HDLC RATIO 2.4 <5.0 (calc) [facility] NON HDL CHOLESTEROL 113 <130 mg/dL (calc) [facility] Comment: For patients with diabetes plus 1 major ASCVD risk factor, treating to a non-HDL-C goal of <100 mg/dL (LDL-C of <70 mg/dL) is considered a therapeutic option. Blood BLOOD SPECIMEN / Unknown 12/05/2023 10:20 AM CDT 12/05/2023 10:21 AM CDT Rae BUCKLEY CHEMISTRY Performing Organization Address City/[facility]/ZIP Co de Phone Number [facility] [address] [place] [address], [facility] [address] [place] [address] * GLUCOSE, RANDOM (12/05/2023 10:20 AM CDT) GLUCOSE, RANDOM 118 <140 mg/dL [facility] Blood BLOOD SPECIMEN / Unknown 12/05/2023 10:20 AM CDT 12/05/2023 10:21 AM CDT Rae BUCKLEY CHEMISTRY [facility] [address] [place] [address], [place] [phone] [facility] [address] [place] [address] * HEMOGLOBIN (12/05/2023 10:20 AM CDT) HEMOGLOBIN 15.0 11.7 - 15.5 g/dL [facility] Blood BLOOD SPECIMEN / Unknown 12/05/2023 10:20 AM CDT 12/05/2023 10:21 AM CDT Rae BUCKLEY HEMATOLOGY Performing Organization Address City/[facility]/ZIP Co de Phone Number [facility] [address] [place] [address], [place] [phone] [facility] [address] [place] [address] * FERRITIN (12/05/2023 10:20 AM CDT) FERRITIN 34 16 - 154 ng/mL [facility] Blood BLOOD SPECIMEN / Unknown 12/05/2023 10:20 AM CDT 12/05/2023 10:21 AM CDT Rae BUCKLEY CHEMISTRY [facility] [address] [facility] [place] [address], [facility] [address] [place] [address] * ANTI HIV 1/2 (06/17/2020 4:26 PM CDT) Pathologist [facility] HIV-1/HIV-2 ANTIBODY Non-Reacti ve Non-Reacti ve 06/18/2020 2:58 PM CDT [facility] Comment:HIV-1 p24 and HIV-1/ HIV-2 Ab not detected. Blood BLOOD SPECIMEN / Unknown Venipuncture / Unknown 06/17/2020 4:26 PM CDT 06/17/2020 4:26 PM CDT Nita Orona MD [facility] [address] [place] [address], [place] * ANTI HCV (06/01/2016 3:02 PM CDT) [facility] HEPATITIS C ANTIBODY Non-Reacti ve Non-Reacti ve 06/01/2016 8:49 PM CDT [facility] Blood BLOOD SPECIMEN / Unknown Venipuncture / Unknown 06/01/2016 3:02 PM CDT 06/01/2016 3:02 PM CDT Narrative [facility] - 06/01/2016 8:49 PM CDT Antibodies to HCV not detected; does not exclude the possibility of exposure to HCV. Alyce BUCKLEY SEND OUTS [facility] [address] [place] [address], from Last 3 Months or Most Recently Relevant to Health Maintenance Advance Directives * Full Code (Latest Code Status on File) Date Activated Date Inactivated Comments 04/06/2011 8:11 PM 04/08/2011 5:32 PM * Full Code Date Activated Date Inactivated Comments 11/30/2009 2:02 AM 11/30/2009 5:16 PM Care Teams Gift Wrapper Relationship Specialty Start Date End Date Pcp, No . PCP - General 11/27/23
== END 2024-01-29 13:28 | disposition home or self-care (01) ==
PROVIDERS: PCP Student in an Organized Health Care Education/Training Program; Visit Provider Obstetrics & Gynecology
DX: N91.5 Oligomenorrhea, unspecified (principal); R87.613 High grade squamous intraepithelial lesion on cytologic smear of cervix (HGSIL); R87.618 Other abnormal cytological findings on specimens from cervix uteri
CPT/HCPCS: 82670; 83001; 84146; 84270; 84402; 84403; 84443

== ENCOUNTER 2024-02-29 10:07 | Outpatient (CLI) | payer BC, SELFPAY | END 2024-02-29 10:08 | disposition home or self-care (01) | LOC: NFLDREF 03-02 14:27 | PROVIDERS: PCP Student in an Organized Health Care Education/Training Program; Referring Provider Student in an Organized Health Care Education/Training Program; Visit Provider Obstetrics & Gynecology | DX: N91.5 Oligomenorrhea, unspecified (principal) | CPT/HCPCS: 82670; 83001 ==

== ENCOUNTER 2024-03-07 09:01 | Day surgery (SDC) | payer SELFPAY ==
[2024-03-07] MEDS: LACTATED RINGERS 1000 ML 1,000 ML 100 ML IV (09:05)
[2024-03-07 09:13] VITALS: BMI 30.7
[2024-03-07 09:22] VITALS: BP 120/75; PULSE 66; RESP 16; TEMP 36.6; O2SAT 97
[2024-03-07] MEDS: SODIUM CHLORIDE 0.9 % (FLUSH) 10 ML SYRINGE IVF (09:23)
[2024-03-07 09:40] LABS: Hemoglobin* 14.1 gm/dL (12.0-16.0)
[2024-03-07 09:43] LABS: Ur HCG Qualitative* Negative (Negative)
--- NOTE | 2024-03-07 10:29 | W.PM.H&PU_ITS ---
History & Physical Update History & Physical Update H&P Reviewed and patient assessed: No changes noted H&P Updates: Ms. [place] is seen in pre-op prior to planned cold knife conization. No interval change to her health history or questions today. She is also being seen by myself for premature ovarian insufficiency, where she had been considering a Mirena IUD today for endometrial protection. She has consider this further and does not want a proceed. She would be interested in a c ombination HRT patch. We again reviewed the risks, benefits and alternatives to the planned procedure. Written consent was re-signed. Post-procedure restrictions and expectations reviewed. Pre-op labs reviewed and are within normal limits, UPT negative. No perioperative antibiotics indicated.
--- NOTE | 2024-03-07 10:32 | P.GYNPRC_ITS ---
Procedure Note Date of procedure: 03/07/24 Will [facility] bill your pro fee for this procedure?: Yes Pre-op diagnosis: High grade cervical dysplasia Procedure: Cold knife conization Anesthesia: local Complications: None Surgeon: Lexie Reed MD Estimated blood loss (mL): 5 IV fluids (mL): 400 Urine Output (mL): 50 Pathology: specimen obtained, sent to pathology Condition: stable Disposition: same day Procedure Description: The patient was brought to the operating room and, after induction of anesthesia, placed in the dorsal lithotomy position. She was prepped and draped in the usual sterile fashion. A surgical pause was performed. The bladder was emptied with a straight catheter, 50cc of pale yellow urine. Weighted speculum and Luh retractor were inserted vaginally, where the cervix was readily visualized. Lugol's solution was applied to the cervix, where no decreased uptake was noted. Prior colposcopy revealed CELINA 1 at 1 and 5 o'clock on the ectocervix, whereas ECC was positive for CIN2-3. I then assessed the length and angle of the endocervical canal with a uterine sound, measuring 4 cm. Hemostatic sutures with 0 chromic at 3 and 9 o'clock were applied at the cervicovaginal junction. Using dilute vasopressin (20u/100mL), the cervical stroma was infiltrated in all quadrants with total of 8mL. A long handle 11 blade was utilized to make a circumferential incision parallel to the plane of the endocervical canal. The specimen was grasped with Allis forceps at 12 and 6 o'clock, where calpel was angled to incise at a 45 degree angle toward the endocervical canal. Specimen was removed intact, stitch applied at 12 o'clock for orientation. The cone bed was noted to be mildly oozy, where roller ball cau josh was applied to achieve hemostasis and further decimation of tissue. Monsel's solution was withheld as patient previously experienced contact irritation with this, cone bed was hemostatic. Sutures were cut and remained in situ. The patient was taken to the recovery room in good condition. Surgical deep reflux completed as noted above. Specimen is cervical conization, sent for pathologic evaluation with stitch at 12o'clock.
[2024-03-07] MEDS: LIDOCAINE 1% MDV 20 ML INJECTION (11:15)
[2024-03-07] MEDS: 0.9 % SODIUM CHLORIDE 100 ml INJECTION (11:19)
[2024-03-07] MEDS: VASOPRESSIN 20 UNIT/ML INJ INJECTION (11:19)
[2024-03-07] MEDS: KETOROLAC 30 MG/ML inj IVP (11:29)
--- NOTE | 2024-03-07 11:40 | W.ANESCHARGE ---
Anesthesia Charges Start Date/Time Anesthesia Start Date: 03/07/24 Anesthesia Start Time: 10:41 Stop Date/Time Anesthesia Stop Date: 03/07/24 Anesthesia Stop Time: 11:40
[2024-03-07 11:43] VITALS: BP 114/75; PULSE 65; RESP 14; TEMP 36.6; O2SAT 96
[2024-03-07 11:45] VITALS: BP 115/68; PULSE 76; RESP 14; O2SAT 100
[2024-03-07 12:00] VITALS: BP 134/111; PULSE 62; RESP 14; O2SAT 98
[2024-03-07 12:15] VITALS: BP 130/82; PULSE 60; RESP 14; O2SAT 100
[2024-03-07 12:30] VITALS: BP 130/80; PULSE 56; RESP 14; O2SAT 99
--- NOTE | 2024-03-07 12:43 | SUR.PHASEII ---
Patient reporting heavy bleeding, dr. alexander updated - plan for exam in the room.
--- NOTE | 2024-03-07 13:01 | SUR.PHASEII ---
Dr. Reed in room, exam completed and Monsel solution applied. Patient instructed to hang out a little longer to monitor for continued bleeding.
== END 2024-03-07 13:32 | disposition home or self-care (01) ==
PROVIDERS: PCP Student in an Organized Health Care Education/Training Program; Visit Provider Obstetrics & Gynecology
PROC: 0UBC7ZZ Excision of Cervix, Via Natural or Artificial Opening (ICD-10-PCS; CPT 57520; principal; 2024-03-07 10:15)
DX: N87.1 Moderate cervical dysplasia (principal); E28.310 Symptomatic premature menopause; N99.820 Postprocedural hemorrhage of a genitourinary system organ or structure following a genitourinary system procedure
CPT/HCPCS: 57520; 00940; 36415; 81025; 85018; 86850; 86900; 86901; 88307; J2003; A9270; J1100; J1885; J2405; J2704; J3010; J7120